=== PATIENT | female | born 2005 | race African-American/Black ===

== ENCOUNTER 2023-12-06 17:53 | Emergency (ER) | payer OTHER ==
[~2023-12-06] VITALS: Ht 172.7 cm; Wt 86.4 kg
[2023-12-06 22:36] VITALS: BP 110/63; PULSE 97; RESP 14; TEMP 98
[2023-12-06] MEDS ORDERED: IBUP-1492 PO (22:36)
== END 2023-12-06 22:55 | disposition home or self-care (01) ==
LOC: EMS 17:54
DX: S83.91XA Sprain of unspecified site of right knee, initial encounter (principal); X58.XXXA Exposure to other specified factors, initial encounter; Y93.89 Activity, other specified; Y92.89 Other specified places as the place of occurrence of the external cause; Y99.8 Other external cause status
CPT/HCPCS: 99283

== ENCOUNTER 2024-05-16 20:34 | Emergency (ER) | payer OTHER ==
[~2024-05-16] VITALS: Ht 172.7 cm; Wt 86.4 kg
[~2024-05-16 20:34] MED LIST: IBUP-1492 PO
[2024-05-16 20:37] VITALS: BP 117/72; PULSE 75; RESP 18; TEMP 98.1; O2SAT 100
== END 2024-05-16 21:25 | disposition home or self-care (01) ==
LOC: EMS 20:34
DX: S00.452A Superficial foreign body of left ear, initial encounter (principal); W45.8XXA Other foreign body or object entering through skin, initial encounter; Y93.89 Activity, other specified; Y92.89 Other specified places as the place of occurrence of the external cause; Y99.8 Other external cause status
CPT/HCPCS: 99284; Z7502